=== PATIENT | female | born 1975 | race Caucasian/White ===

== ENCOUNTER 2017-05-09 09:42 | Emergency (ER) | payer MEDICAID ==
[~2017-05-09] VITALS: Ht 182.9 cm; Wt 79.9 kg
[2017-05-09] MEDS ORDERED: ketorolac trometh inj. 60 MG/2 ML VIAL IM ONE (10:30)
[2017-05-09] MEDS ORDERED: MELO-102 PO (10:31)
[2017-05-09 10:40] VITALS: BP 100/73
== END 2017-05-09 10:41 | disposition home or self-care (01) ==
LOC: ER 09:43
DX: J06.9 Acute upper respiratory infection, unspecified (principal); G89.29 Other chronic pain; M54.5 Low back pain; F12.10 Cannabis abuse, uncomplicated; F15.10 Other stimulant abuse, uncomplicated; F11.10 Opioid abuse, uncomplicated; Z88.0 Allergy status to penicillin; Z79.899 Other long term (current) drug therapy
CPT/HCPCS: 96372; 99283; J1885